=== PATIENT | female | born 1960 | race Caucasian/White ===

== ENCOUNTER → 2016-07-19 | Outpatient (CLI) | payer MEDICAID ==
[~2016-07-19] MED LIST: ASPI-515 PO; IBUP400T PO; MULT-26 PO; OMEG1CAP48 PO
== END | disposition home or self-care (01) ==
LOC: CFH 08:56
PROVIDERS: ATTEND Nurse Practitioner Family
DX: Z12.31 Encounter for screening mammogram for malignant neoplasm of breast (principal); I08.1 Rheumatic disorders of both mitral and tricuspid valves; I37.1 Nonrheumatic pulmonary valve insufficiency; F17.200 Nicotine dependence, unspecified, uncomplicated
CPT/HCPCS: 93306; G0202

== ENCOUNTER → 2016-09-27 | Outpatient (CLI) | payer MEDICAID | END | disposition home or self-care (01) | LOC: CFH 09:39 | PROVIDERS: ATTEND Registered Nurse Registered Nurse First Assistant | DX: M51.36 Other intervertebral disc degeneration, lumbar region (principal); M43.17 Spondylolisthesis, lumbosacral region | CPT/HCPCS: 72110 ==

== ENCOUNTER → 2017-02-21 | Outpatient (CLI) | payer MEDICAID ==
[~2017-02-21] MED LIST changes: +IBUP-1221 PO; -IBUP400T PO
== END | disposition home or self-care (01) ==
LOC: CFH 10:53
PROVIDERS: ATTEND Physician Assistant
DX: B18.2 Chronic viral hepatitis C (principal)
CPT/HCPCS: 76705

== ENCOUNTER → 2017-08-29 | Outpatient (CLI) | payer MEDICAID | LOC: CFH 10:19 | PROVIDERS: ATTEND Physician Assistant | DX: K83.8 Other specified diseases of biliary tract (principal); B19.20 Unspecified viral hepatitis C without hepatic coma | CPT/HCPCS: 76705 ==

== ENCOUNTER → 2017-10-06 | Outpatient (CLI) | payer MEDICAID ==
[~2017-10-06] MED LIST changes: +REGADENOSON 0.4 MG/5 ML SYRINGE ONE
== END | disposition home or self-care (01) ==
LOC: CFH 10:08
PROVIDERS: ATTEND Internal Medicine Cardiovascular Disease
DX: I34.0 Nonrheumatic mitral (valve) insufficiency (principal); I10 Essential (primary) hypertension; F17.210 Nicotine dependence, cigarettes, uncomplicated; Z80.9 Family history of malignant neoplasm, unspecified
CPT/HCPCS: 78452; 93017; 93306; A9502; J2785

== ENCOUNTER → 2018-03-09 | Outpatient (CLI) | payer MEDICAID ==
[~2018-03-09] MED LIST changes: -REGADENOSON 0.4 MG/5 ML SYRINGE ONE
== END | disposition home or self-care (01) ==
LOC: CFH 09:42
PROVIDERS: ATTEND Physician Assistant
DX: B18.2 Chronic viral hepatitis C (principal); Z90.49 Acquired absence of other specified parts of digestive tract
CPT/HCPCS: 76705

== ENCOUNTER → 2018-09-01 | Outpatient (CLI) | payer MEDICAID | END | disposition home or self-care (01) | LOC: CFH 08:58 | PROVIDERS: ATTEND Nurse Practitioner Family | DX: Z12.31 Encounter for screening mammogram for malignant neoplasm of breast (principal); R92.8 Other abnormal and inconclusive findings on diagnostic imaging of breast | CPT/HCPCS: 76641; 77067 ==

== ENCOUNTER → 2018-09-11 | Outpatient (CLI) | payer MEDICAID | END | disposition home or self-care (01) | LOC: CFH 10:13 | PROVIDERS: ATTEND Physician Assistant | DX: K74.0 Hepatic fibrosis (principal) | CPT/HCPCS: 76705 ==